=== PATIENT | male | born 1940 | race Caucasian/White ===

== ENCOUNTER 2023-12-02 02:25 | Inpatient (IN) | payer MEDICAID, MEDICARE, OTHER ==
[~2023-12-02] VITALS: Ht 175.3 cm; Wt 70.3 kg
[2023-12-02 03:47] LABS: HEMOGLOBIN. 9.9 g/dL (14.0-18.0); MEAN CORPUSCULAR HEMOGLOBIN 25.4 pg (28.0-32.0); PLATELET 150 x1000/uL (130-400); RED BLOOD CELL COUNT 3.91 mill/uL (4.7-6.1)
[2023-12-02 04:02] LABS: ACETAMINOPHEN < 2 ug/mL (10-30); ALANINE AMINOTRANSFERASE 9 IU/L (10-49); ALBUMIN 4.7 g/dL (3.2-4.8); ASPARTATE AMINOTRANSFERASE 14 IU/L (<34); BILIRUBIN TOTAL 0.4 mg/dL (0.1-1.0); CALCIUM 9.5 mg/dL (8.7-10.4); CARBON DIOXIDE 25 mEq/L (21-32); CHLORIDE 106 mEq/L (98-107); CREATININE 1.9 mg/dL (0.6-1.3); GLUCOSE 102 mg/dL (70-105); POTASSIUM 5.3 mEq/L (3.5-5.1); SODIUM 138 mEq/L (136-145); TROPONIN I HIGH SENSITIVITY 30 ng/L (3.0-53); UREA NITROGEN BLOOD 38 mg/dL (9-23)
[2023-12-02 04:03] LABS: DIFFERENTIAL COMMENT 1
[2023-12-02 04:10] LABS: ETHANOL BLOOD < 10 mg/dL (<10)
[2023-12-02 05:57] LABS: PLATELET ESTIMATE NORMAL
[2023-12-02] MEDS ORDERED: ACETAMINOPHEN 325MG TABLET PO PRN (13:00)
[2023-12-02] MEDS ORDERED: ONDANSETRON HCL 4MG/2ML INJ IV PRN (13:00)
[2023-12-02 14:51] LABS: CLARITY URINE CLEAR (CLEAR); COLOR URINE YELLOW (YELLOW); GLUCOSE URINE NEGATIVE (NEGATIVE); KETONES URINE NEGATIVE (NEGATIVE); LEUKOCYTE ESTERASE URINE 2+ (NEGATIVE); NITRITE URINE NEGATIVE (NEGATIVE); OCCULT BLOOD URINE NEGATIVE (NEGATIVE); PROTEIN URINE NEGATIVE (NEGATIVE); SPECIFIC GRAVITY URINE 1.017 (1.005-1.030); UROBILINOGEN URINE 0.2 E.U./dL (0.2-1.0)
[2023-12-02 15:06] LABS: BACTERIA URINE 2+; RBC URINE 0-2 /hpf (0-2); SQUAMOUS EPITHELIAL CELL URINE RARE /lpf (RARE/1+); WBC URINE 50-100 /hpf (0-2); YEAST URINE NONE SEEN
[2023-12-02 15:28] LABS: *AMPHETAMINES SCREEN URINE NEGATIVE (NEGATIVE); *BARBITURATES SCREEN URINE NEGATIVE (NEGATIVE); *BENZODIAZEPINES SCREEN URINE NEGATIVE (NEGATIVE); *COCAINE SCREEN URINE NEGATIVE (NEGATIVE); CANNABINOID URINE SCREEN NEGATIVE (NEGATIVE); ECSTASY MDMA SCREEN URINE NEGATIVE (NEGATIVE); METHADONE URINE SCREEN Neg (NEGATIVE); OPIATES URINE SCREEN NEGATIVE (NEGATIVE); PHENCYCLIDINE URINE SCREEN NEGATIVE (NEGATIVE)
[2023-12-02 20:00] VITALS: BP_SYST 100; BP_SYST 106; BP_DIAS 64; PULSE 61; RESP 18; RESP 20; TEMP 96.4
[2023-12-02] MEDS: SODIUM POLYSTYRENE SULFONATE 15 G/60 ML BOT PO NR (21:28)
[2023-12-02] MEDS: CEFTRIAXONE 1GM/50ML 50 ML IV SCH (23:35)
[2023-12-03] VITALS: BP 106/60; PULSE 60; RESP 20; TEMP 96.6
[2023-12-03 04:00] VITALS: BP 93/53; PULSE 63; RESP 20; TEMP 96.3
[2023-12-03 08:00] VITALS: BP 107/65; PULSE 63; RESP 16; TEMP 98.6
[2023-12-03 12:00] VITALS: BP_SYST 117; BP_SYST 94; BP_DIAS 50; BP_DIAS 55; PULSE 64; PULSE 67; RESP 17; RESP 18; TEMP 97.9; TEMP 98.4
[2023-12-03 16:00] VITALS: BP 94/50; PULSE 64; RESP 17; TEMP 97.9
[2023-12-03 20:00] VITALS: BP 131/61; PULSE 97; RESP 20; TEMP 97.9
[2023-12-03 22:00] LABS: HEMATOCRIT. 32.4 % (42.0-52.0); HEMOGLOBIN. 10.3 g/dL (14.0-18.0); MEAN CORPUSCULAR HEMOGLOBIN 26.4 pg (28.0-32.0); MEAN CORPUSCULAR HGB CONC 31.8 g/dL (31.0-37.0); MEAN CORPUSCULAR VOLUME 83.2 fL (80.0-94.0); MEAN PLATELET VOLUME 10.3 fl (7.4-10.4); PLATELET 143 x1000/uL (130-400); RED CELL DISTRIBUTION WIDTH 28.6 % (11.6-14.6); WHITE BLOOD COUNT 8.5 x1000/uL (4.5-11.0)
[2023-12-03 22:05] LABS: CALCIUM 9.1 mg/dL (8.7-10.4); CREATININE 1.6 mg/dL (0.6-1.3); DIFFERENTIAL COMMENT 1; POTASSIUM 4.2 mEq/L (3.5-5.1)
[2023-12-03 22:24] LABS: ANISOCYTOSIS 2+; PLATELET ESTIMATE NORMAL
[2023-12-04] VITALS: BP 118/60; PULSE 68; RESP 20; TEMP 97.7
[2023-12-04 04:00] VITALS: BP 130/76; PULSE 59; RESP 20; TEMP 96.6
[2023-12-04 08:00] VITALS: BP 128/67; PULSE 60; RESP 17; TEMP 98
[2023-12-04 12:00] VITALS: BP 96/38; PULSE 61; RESP 17; TEMP 98.4
[2023-12-04 16:00] VITALS: BP 100/67; PULSE 60; RESP 17; TEMP 98.1
[2023-12-04 20:00] VITALS: BP 102/64; PULSE 62; RESP 18; TEMP 99.5
[2023-12-05] VITALS: BP 113/50; PULSE 56; RESP 18; TEMP 98.1
[2023-12-05 04:00] VITALS: BP 111/65; PULSE 69; RESP 18; TEMP 97.9
[2023-12-05 08:00] VITALS: BP 96/55; PULSE 70; RESP 20; TEMP 98.2
[2023-12-05 12:00] VITALS: BP 90/41; PULSE 60; RESP 19; TEMP 98.6
[2023-12-05 14:14] VITALS: BP 90/41; PULSE 60; TEMP 98.6; O2SAT 98
[2023-12-05 16:00] VITALS: BP 107/48; PULSE 61; RESP 61; TEMP 98.5
== END 2023-12-05 18:15 | DRG 463 ==
LOC: ER 02:25 → 5WST 04:48 → EDBEDREQTM 04:59 → EDBEDREQ 04:59 → 6EST 20:32
PROVIDERS: ADMIT Internal Medicine; ATTEND Internal Medicine
DX: N39.0 Urinary tract infection, site not specified (principal); G93.40 Encephalopathy, unspecified; N17.9 Acute kidney failure, unspecified; J44.9 Chronic obstructive pulmonary disease, unspecified; F41.9 Anxiety disorder, unspecified; F03.90 Unspecified dementia, unspecified severity, without behavioral disturbance, psychotic disturbance, mood disturbance, and anxiety; D72.829 Elevated white blood cell count, unspecified; N18.9 Chronic kidney disease, unspecified; Z95.0 Presence of cardiac pacemaker; Z79.899 Other long term (current) drug therapy
CPT/HCPCS: 36415; 71045; 80048; 80053; 80305; 80307; 80320; 80329; 81003; 84484; 85025; 87077; 87186; 93005; 97161; 99285; C1893; J0696; G0480